=== PATIENT | male | born 1995 | race Caucasian/White ===

== ENCOUNTER 2016-11-22 13:52 | Emergency (ER) ==
[2016-11-22 14:10] VITALS: BP 125/71; TEMP 97.4; BMI 31.2
--- NOTE | 2016-11-22 14:27 | ED.PDOC ---
General ED Provider: Dr. KERON TYSON Chief Complaint: Non-specific Complaint Stated Complaint: Patient recently had tatto on the rt forearm, and while at work it got irritated by lifting some cartons, now it is red and hurting. per patint the he used the new needle for tatto. Time Seen by Physician: 14:26 Information Source: Patient Primary Care Provider: FOSTER AGARWAL Nursing and Triage Documentation Reviewed and Agree: Yes Skin Complaint Exam - Skin/Soft Tissue Complaint/Exam Symptoms Are: Still present Timing: Constant Initial Severity: Mild Current Severity: Mild Character: Reports: Redness, Swelling, Painful Aggravating: Reports: None Alleviating: Reports: None Associated Signs and Symptoms: Reports: Tenderness. Denies: Fever, Chills, Itching, Drainage, Bruising, Red streaks, Joint swelling Related Surgical History: Reports: None Skin Findings: Present: Erythema, Induration Differential Diagnoses: Cellulitis Review of Systems - Review Of Systems Constitutional: Reports: No symptoms Eyes: Reports: No symptoms Ears, Nose, Mouth, Throat: Reports: No symptoms Respiratory: Reports: No symptoms Cardiac: Reports: No symptoms GI: Reports: No symptoms : Reports: No symptoms Musculoskeletal: Reports: No symptoms Skin: Reports: Lesions Neurological: Reports: No symptoms Endocrine: Reports: No symptoms Hematologic/Lymphatic: Reports: No symptoms All Other Systems: Reviewed and Negative Past Medical History - Past Medical History Previously Healthy: Yes Endocrine: Reports: None Cardiovascular: Reports: None Respiratory: Reports: None Hematological: Reports: None Gastrointestinal: Reports: None Genitourinary: Reports: None Neuro/Psych: Reports: None Musculoskeletal: Reports: None Cancer: Reports: None - Surgical History General Surgical History: Reports: None - Family History Family History: Reports: None - Social History Smoking Status: Current every day smoker Smoking Cessation Counseling Time: > 3 min - 10 min Hx Substance Use: Yes (weed) Alcohol Screening: Occasionally - Immunizations Tetanus Shot up to Date: Yes Physical Exam - Physical Exam Appearance: Well-appearing, No pain distress, Well-nourished Eyes: REGIS, EOMI, Conjunctiva clear ENT: Ears normal, Nose normal, Oropharynx normal Respiratory: Airway patent, Breath sounds clear, Breath sounds equal, Respirations nonlabored Cardiovascular: RRR, Pulses normal, No rub, No murmur GI/: Soft, Nontender, No masses, Bowel sounds normal, No Organomegaly Musculoskeletal: Normal strength, ROM intact, No edema, No calf tenderness Skin: Warm (redness and induration tender.), Dry, Normal color Neurological: Sensation intact, Motor intact, Reflexes intact, Cranial nerves intact, Alert, Oriented Psychiatric: Affect appropriate, Mood appropriate Critical Care Note - Critical Care Note Total Time (mins): 0 Course - Course Vital Signs: Temp Pulse Resp BP Pulse Ox 11/22/16 13:53 97.4 F L 75 20 125/71 96 Departure - Departure Time of Disposition: 14:29 Disposition: HOME SELF-CARE Discharge Problem: Right forearm cellulitis Instructions: Cellulitis (ED) Condition: Stable Pt referred to PMD for follow-up: Yes Additional Instructions: tylenol prn do not touch f/u in [facility] IN 3 DAYS Prescriptions: Cephalexin [Keflex] 500 mg PO Q12HR #20 capsule Clindamycin HCl 300 mg PO TID #15 capsule Allergies/Adverse Reactions: Allergies No Known Allergies Allergy (Verified 11/22/16 14:00) Home Medications: Ambulatory Orders Cephalexin [Keflex] 500 mg PO Q12HR #20 capsule 11/22/16 Clindamycin HCl 300 mg PO TID #15 capsule 11/22/16 Disposition Discussed With: Patient
[2016-11-22] MEDS: CLEOCIN PO STA (14:31)
[2016-11-22] MEDS: KEFLEX PO STA (14:31)
== END 2016-11-22 14:38 | disposition home or self-care (01) ==
LOC: ED 13:52
DX: L03.113 Cellulitis of right upper limb (principal); M79.631 Pain in right forearm; F17.200 Nicotine dependence, unspecified, uncomplicated
CPT/HCPCS: 99282